=== PATIENT | female | born 1965 | race Hispanic/Latino ===

== ENCOUNTER 2016-11-09 20:53 | Emergency (ER) | payer OTHER ==
[~2016-11-09] VITALS: Ht 162.6 cm; Wt 68.9 kg
[2016-11-09 21:01] VITALS: BP 161/85
--- NOTE | 2016-11-09 21:33 | ED NECK/BACK PAIN COMPLAINT ---
History of Present Illness General Chief Complaint: Lower Extremity Problems Stated Complaint: PT HURT HER BACK LIFTING SOMETHING HEAVY Source: patient, family Exam Limitations: language barrier Vital Signs & Intake/Output Vital Signs & Intake/Output Vital Signs Date Time Temp Pulse Resp B/P B/P Pulse O2 O2 Flow FiO2 Mean Ox Delivery Rate 11/09 2101 97.1 64 18 161/85 98 Room Air ED Intake and Output 11/10 0000 11/09 1200 Intake Total Output Total Balance Patient 152 lb Weight Allergies Coded Allergies: MDX - Nkda - No Known Drug Allergie (NKDA - NO KNOWN DRUG ALLERGIES) (06/23/12) Reconcile Medications Cyclobenzaprine HCl 10 MG TABLET 1 TAB PO QPM PRN MUSCLE RELAXOR Meloxicam (Mobic) 15 MG TABLET 1 TAB PO DAILY PRN PAIN Methylprednisolone. (Medrol) 4 MG TAB.DS.PK 1 DP PO AD INFLAMMATION 6 on day 1 then reduce by one tablet daily until gone Triage Note: PT STATES THAT SHE LIFTED SOMETHING HEAVEY YESTERDAY AND HAS BEEN HAVING LOW BACK PAIN SINCE Triage Nurses Notes Reviewed? yes Onset: Gradual Timing: recent history Quality/Severity: severe Location: paraspinous muscles Radiation: upper legs Context: lifting, turning/bending HPI: Patient is a 51-year-old female who presents emergency room with concerns of patient lifting a 25 pound heavy object where she was in a bent over position and turning her body to move the heavy object where approximately 15 minutes later patient had a gradual onset of generalized back pain. Patient states that lumbar spine movements make worsened has associated symptoms of bilateral lower extremity mild paresthesia to her upper thighs. Patient denies any bowel or bladder incontinence. Patient has tried ibuprofen with minimal relief of symptoms. Denies any saddle paresthesia (STEFANIE JENNINGS) Past History Travel History Traveled to [place] past 21 day No Medical History Any Pertinent Medical History? none Neurological: NONE EENT: NONE Cardiovascular: NONE Respiratory: NONE Gastrointestinal: NONE Renal: NONE Musculoskeletal: NONE Psychiatric: NONE Endocrine: NONE Blood Disorders: NONE Cancer(s): NONE CHIP SEPARATOR/Reproductive: NONE Surgical History Surgical History: non-contributory Psychosocial History What is your primary language Serbian Tobacco Use: Never used ETOH Use: denies use Illicit Drug Use: denies illicit drug use Family History Hx Contributory? No (STEFANIE JENNINGS) Review of Systems Review of Systems Constitutional: Reports: no symptoms. Eyes: Reports: no symptoms. Ears, Nose, Throat, Mouth: Reports: no symptoms. Respiratory: Reports: no symptoms. Cardiovascular: Reports: no symptoms. Gastrointestinal/Abdominal: Reports: no symptoms. Musculoskeletal: Reports: see HPI, back pain, muscle pain, muscle stiffness. Skin: Reports: no symptoms. Neurological/Psychological: Reports: no symptoms. All Other Systems: Reviewed and Negative (STEFANIE JENNINGS) Physical Exam Physical Exam General Appearance: mild distress Neck: normal inspection, supple, full range of motion Comments: Well-developed well-nourished person in no acute distress HEENT: Normal EENT exam Neck: Supple, no lymphadenopathy, normal range of motion without pain or tenderness Back: Normal inspection, bilateral paralumbar muscular point tenderness, no central spinous pain Cardiovascular: Regular rate and rhythms no murmurs rubs or gallops, normal JVP Respiratory: Chest nontender. No respiratory distress.breath sounds clear to auscultation bilaterally Abdomen: Soft, nontender nondistended, no appreciable organomegaly. Normal bowel sounds. No ascites Extremity: No edema, no calf tenderness to palpation, normal and equal pulses. Bilateral lower extremity myotomes dermatomes DTRs intact Neuro: Alert oriented x3, motor sensory normal, Skin: No appreciable rash on exposed skin, skin is warm and dry. Psych: Mood and affect is normal, memory and judgment is normal. (STEFANIE JENNINGS) Progress Differential Diagnosis: aortic dissection, C spine injury, carotid dissection, cauda equina syn, herniated disc, myofascial strain, pyelo/UTI, sciatica, spinal cord inj, thoracic outlet syn, T/L spine injury, ureterolithiasis Plan of Care: Patient has no concerns of osseous injury patient has no central spinous pain patient's lower extremities were neurovascularly intact. Patient will be treated for concerns of lumbar strain. Patient had normal steady gait on discharge (STEFANIE JENNINGS) Departure Departure Disposition: HOME OR SELF CARE Condition: Stable Clinical Impression Primary Impression: Low back strain Secondary Impressions: Lumbar radiculopathy Referrals: CECELIA MONTOYA APRN (PCP/Family) Additional Instructions: As discussed begin icing the area directly 20 minutes every 2 hours for pain and inflammation. Begin the prescription meloxicam for pain and inflammation and a prescription MEDROL DOSE LIZZIE for inflammation and cyclobenzaprine for muscle relaxation. Activity as tolerated. Prescription is waiting a [facility] pharmacy. If symptoms worsen return to emergency room. If no better in 5 days follow-up with her primary care doctor Departure Forms: Customer Survey General Discharge Information Prescriptions: Current Visit Scripts Meloxicam (Mobic) 1 TAB PO DAILY PRN PAIN #15 TAB Cyclobenzaprine HCl 1 TAB PO QPM PRN MUSCLE RELAXOR #7 TAB Methylprednisolone. (Medrol) 1 DP PO AD #1 DP 6 on day 1 then reduce by one tablet daily until gone (STEFANIE JENNINGS) PA/OCULAR CARE AIDE Co-Sign Statement Statement: ED Attending supervision documentation- [] I saw and evaluated the patient. I have also reviewed all the pertinent lab results and diagnostic results. I agree with the findings and the plan of care as documented in the PA's/OCULAR CARE AIDE's documentation. [X] I have reviewed the ED Record and agree with the PA's/OCULAR CARE AIDE's documentation. [] Additions or exceptions (if any) to the PAs/OCULAR CARE AIDE's note and plan are summarized below: [] (ALEXANDER RODRIGUEZ,DANDRE Tang)
[2016-11-09] MEDS ORDERED: CYCLOBENZAPRINE10 M1 PO (21:41)
[2016-11-09] MEDS ORDERED: MOBIC15 M1 PO (21:41)
[2016-11-09] MEDS ORDERED: MEDROL4 M2 PO (21:42)
== END 2016-11-09 21:49 ==
LOC: ERH 20:53
DX: S39.012A Strain of muscle, fascia and tendon of lower back, initial encounter (principal); M54.16 Radiculopathy, lumbar region; X58.XXXA Exposure to other specified factors, initial encounter; Y92.9 Unspecified place or not applicable; Y93.9 Activity, unspecified